=== PATIENT | female | born 1985 | race Caucasian/White ===

== ENCOUNTER 2025-11-11 10:43 | Emergency (ER) | payer OTHER ==
[2025-11-11] MEDS ORDERED: Sodium Chloride 0.9% 10 ML Syringe FLUSH PRN (10:50)
[2025-11-11 11:09] LABS: BASOPHILS ABSOLUTE AUTO 0.03 10^3/uL (0.00-0.10); BASOPHILS PERCENT AUTO 0.2 % (0.0-1.0); EOSINOPHILS ABSOLUTE AUTO 0.15 10^3/uL (0.10-0.30); EOSINOPHILS PERCENT AUTO 0.9 % (1.0-3.0); IMMATURE GRAN ABSOLUTE AUTO 0.04 10^3/uL (0.00-0.04); IMMATURE GRAN PERCENT AUTO 0.2 % (0.0-0.4); LYMPHOCYTES ABSOLUTE AUTO 2.12 10^3/uL (1.00-4.00); LYMPHOCYTES PERCENT AUTO 12.2 % (20.0-40.0); MEAN PLATELET VOLUME 9.2 fL (7.4-10.4); MONOCYTES ABSOLUTE AUTO 0.92 10^3/uL (0.10-0.80); MONOCYTES PERCENT AUTO 5.3 % (2.0-8.0); NEUTROPHILS ABSOLUTE AUTO 14.10 10^3/uL (2.50-7.00); NEUTROPHILS PERCENT AUTO 81.2 % (50.0-70.0); PLATELET COUNT,PLT 332 10^3/uL (150-400); RED BLOOD CELL COUNT 5.16 10^6/uL (3.80-5.50); RED CELL DISTRIBUTION WIDTH 14.9 % (11.5-14.5); WHITE BLOOD CELL COUNT,WBC 17.36 10^3/uL (5.00-10.00)
[2025-11-11 11:30] LABS: ALANINE AMINOTRANSFERASE,ALT 25.0 U/L (14-63); ASPARTATE AMNIOTRANSFERASE,AST 22.0 U/L (15-37); BILIRUBIN TOTAL 0.4 mg/dL (0.2-1.0); BLOOD UREA NITROGEN,BUN 8.0 mg/dL (7-18); CARBON DIOXIDE,CO2 27.7 mmol/L (21.0-32.0); CHLORIDE,CL 102.0 mmol/L (98-107); CREATININE 0.63 mg/dL (0.51-1.17); EST CRCL DRUG DOSING (CG) 124.05 mL/min; ESTIMATED GFR 115.0 mL/min (>=60); GLUCOSE RANDOM 107.0 mg/dL (70-140); POTASSIUM,K 3.8 mmol/L (3.5-5.1); PROTEIN TOTAL,TP 7.8 g/dL (6.4-8.2); SODIUM,NA 142.0 mmol/L (136-145)
[2025-11-11] MEDS: Iopamidol 755 Mg/ML 100 ML Bottle IV ONE (11:35)
[2025-11-11] MEDS: Ketorolac 30 MG/ML SDV IVPUSH ONE (11:44)
[2025-11-11 13:23] VITALS: BP 151/95; PULSE 102
== END 2025-11-11 12:50 | disposition home or self-care (01) ==
LOC: KA.ED 10:43
DX: J03.00 Acute streptococcal tonsillitis, unspecified (principal); R93.89 Abnormal findings on diagnostic imaging of other specified body structures; R79.82 Elevated C-reactive protein (CRP); E78.00 Pure hypercholesterolemia, unspecified; I10 Essential (primary) hypertension; Z91.048 Other nonmedicinal substance allergy status; Z88.5 Allergy status to narcotic agent; Z88.8 Allergy status to other drugs, medicaments and biological substances; Z79.899 Other long term (current) drug therapy
CPT/HCPCS: 70491; 80053; 85025; 86140; 96374; 99284-25; J0561; J1885; Q9967